=== PATIENT | male | born 1930 | race Caucasian/White ===

== ENCOUNTER 2017-01-28 21:13 | Emergency (ER) | payer MEDICARE ==
[~2017-01-28] VITALS: Ht 170.2 cm; Wt 98.0 kg
[~2017-01-28 21:13] MED LIST: ALLOPURINOL300 MG PO; AMLODIPINE5 MG PO; ASPIRIN EC81 MG PO; ELIQUIS5 MG PO; HYDROCHLOROT12.5 MG PO; LASIX 20 MG TAB20 MG PO; LISINOPRIL20 MG PO; METFORMIN500 MG PO; SIMVASTATIN20 MG PO
[2017-01-28] MEDS ORDERED: PROAIR HFA108 MCG/AC IN (21:44)
[2017-01-28] MEDS ORDERED: FLONASE AL50 MCG/ACT (21:45)
[2017-01-28] MEDS ORDERED: ULTRAM50 M1 PO (22:42)
[2017-01-28 23:07] VITALS: BP 170/79
== END 2017-01-28 23:00 | disposition home or self-care (01) ==
LOC: ED 21:13
DX: S20.212A Contusion of left front wall of thorax, initial encounter (principal); S63.502A Unspecified sprain of left wrist, initial encounter; S63.501A Unspecified sprain of right wrist, initial encounter; W01.0XXA Fall on same level from slipping, tripping and stumbling without subsequent striking against object, initial encounter; Y93.89 Activity, other specified; Y92.29 Other specified public building as the place of occurrence of the external cause

== ENCOUNTER 2017-08-10 18:55 | Emergency (ER) | payer MEDICARE, MEDICAID ==
[~2017-08-10] VITALS: Ht 170.2 cm; Wt 87.2 kg
[~2017-08-10 18:55] MED LIST changes: +FLONASE AL50 MCG/ACT; +PROAIR HFA108 MCG/AC IN; +ULTRAM50 M1 PO
[2017-08-10 19:37] LABS: HEMATOCRIT 45.1 % (39.0-50.0); IMMATURE GRANULOCYTES 0.4 % (0.0-1.0); MEAN CELL VOLUME 96.6 fL CALC (80.0-100.0); MEAN CORPUSCULAR HGB 32.1 pG CALC (26.0-32.0); MEAN CORPUSCULAR HGB CONC 33.3 g/L CALC (32.0-36.0); NEUT# 11.59 thou/uL (1.82-7.42); RED BLOOD COUNT 4.67 mill/uL (4.70-6.10); RED CELL DISTRI WIDTH 14.9 % (11.5-15.5)
[2017-08-10 19:48] LABS: ALKALINE PHOSPHATASE 107 u/l (38-126); AMYLASE < 30 u/l (30-110); BILIRUBIN, TOTAL 2.4 mg/dL (0.0-1.4); BUN 27 mg/dL (8-23); BUN/CREATININE RATIO 31 (12-20 (CALC)); CARBON DIOXIDE 22 mmol/l (22-30); CHLORIDE 104 mmol/l (95-108); CREATININE 0.9 mg/dL (0.7-1.3); GFR > 60 ML/MIN (>=60 (CALC)); GFR FOR AFR.AMER. > 60 ML/MIN (>=60 (CALC)); LIPASE 31 u/l (23-300); SGOT/AST 31 u/l (19-48); SGPT/ALT 32 u/l (11-66); SODIUM 135 mmol/l (137-146); URINE BILIRUBIN - DIPSTICK NEGATIVE (NEGATIVE); URINE BLOOD DIPSTICK LARGE (NEGATIVE); URINE GLUCOSE - DIPSTICK NEGATIVE (NEGATIVE); URINE KETONE NEGATIVE (NEGATIVE); URINE LEUK ESTERASE NEGATIVE (NEGATIVE); URINE NITRITE - DIPSTICK NEGATIVE (Negative); URINE PROTEIN - DIPSTICK 100 mg/dL (NEG-TRACE)
[2017-08-10 19:49] LABS: URINE CLARITY HAZY; URINE COLOR AMBER
[2017-08-10 19:50] LABS: ALBUMIN 3.5 g/dL (3.2-5.0); ANION GAP 14 (6-22 (CALC)); POTASSIUM 4.5 mmol/l (3.5-5.1); TOTAL PROTEIN 6.7 g/dL (6.3-8.2)
[2017-08-10 19:56] LABS: URINE AMORPH SEDIMENT FEW hpf (NONE-FER); URINE SQUAMOUS EPITHELIAL CELL FEW EPI/hpf (0-FEW)
[2017-08-10] MEDS ORDERED: METRONIDAZOL500 MG PO (21:05)
[2017-08-10] MEDS ORDERED: CIPROFLOXACN500 MG PO (21:05)
[2017-08-10 21:21] VITALS: BP 109/54
== END 2017-08-10 21:35 | disposition home or self-care (01) ==
LOC: ED 18:55
PROVIDERS: Family Medicine
DX: K57.32 Diverticulitis of large intestine without perforation or abscess without bleeding (principal); R10.31 Right lower quadrant pain; R10.32 Left lower quadrant pain; R19.7 Diarrhea, unspecified
CPT/HCPCS: Q9967

== ENCOUNTER 2018-11-07 09:47 | Emergency (ER) | payer MEDICARE, MEDICAID ==
[~2018-11-07] VITALS: Ht 170.2 cm; Wt 90.0 kg
[~2018-11-07 09:47] MED LIST changes: +CIPROFLOXACN500 MG PO; +METRONIDAZOL500 MG PO
[2018-11-07] MEDS ORDERED: DIOVAN160 MG PO (11:09)
[2018-11-07] MEDS ORDERED: NORVASC2.5 M1 PO (11:09)
[2018-11-07] MEDS ORDERED: SPIRONOLACTONE25 MG PO (11:11)
[2018-11-07] MEDS ORDERED: ALLERGY RE50 MCG/ACT IN (11:14)
[2018-11-07] MEDS ORDERED: TRIAMCINOLONE A0.12 EX (11:15)
[2018-11-07] MEDS ORDERED: KURIC2 % EX (11:16)
[2018-11-07] MEDS ORDERED: BACTROBAN TOP (12:17)
[2018-11-07] MEDS ORDERED: KEFLEX500 M1 PO (12:17)
[2018-11-07 12:35] VITALS: BP 173/76
== END 2018-11-07 12:35 | disposition home or self-care (01) ==
LOC: ED 09:47
DX: S80.02XA Contusion of left knee, initial encounter (principal); S63.502A Unspecified sprain of left wrist, initial encounter; S80.811A Abrasion, right lower leg, initial encounter; I10 Essential (primary) hypertension; I48.91 Unspecified atrial fibrillation; W01.0XXA Fall on same level from slipping, tripping and stumbling without subsequent striking against object, initial encounter; W22.09XA Striking against other stationary object, initial encounter; Y92.009 Unspecified place in unspecified non-institutional (private) residence as the place of occurrence of the external cause

== ENCOUNTER 2019-07-01 | Emergency (ER) | payer MEDICARE ==
[~2019-07-01] MED LIST changes: +ALLERGY RE50 MCG/ACT IN; +BACTROBAN TOP; +DIOVAN160 MG PO; +KEFLEX500 M1 PO; +KURIC2 % EX; +NORVASC2.5 M1 PO; -SIMVASTATIN20 MG PO; +SPIRONOLACTONE25 MG PO; +TRIAMCINOLONE A0.12 EX
[2019-07-01] MEDS ORDERED: BENICAR20 MG PO (18:22)
[2019-07-01] MEDS ORDERED: LASIX 20 MG TAB20 MG PO (18:23)
[2019-07-01] MEDS ORDERED: ECONAZOLE1 % EX (18:23)
[2019-07-01] MEDS ORDERED: VITAMIN B-12500 MC2 PO (18:24)
[2019-07-01] MEDS ORDERED: KETOCONAZOLE2 % EX (18:24)
[2019-07-01] MEDS ORDERED: VITAMIN D3400 UNIT PO (18:25)
[2019-07-01] MEDS ORDERED: MULTI VIT PO (18:25)
[2019-07-01] MEDS ORDERED: DIOVAN160 MG PO (18:25)
[2019-07-01] MEDS ORDERED: TYLENOL325 M2 PO (18:27)
[2019-07-01] MEDS ORDERED: AMLODIPINE BES2.5 MG PO (18:27)
[2019-07-01] MEDS ORDERED: ZYLOPRIM300 MG PO (18:28)
[2019-07-01] MEDS ORDERED: ELIQUIS5 MG PO (18:28)
[2019-07-01] MEDS ORDERED: SIMVASTATIN20 MG PO (18:29)
[2019-07-01] MEDS ORDERED: KEFLEX500 M1 PO ×2 (20:38)
== END 2019-07-01 20:55 | disposition home or self-care (01) ==
DX: L03.114 Cellulitis of left upper limb (principal); E11.9 Type 2 diabetes mellitus without complications; I10 Essential (primary) hypertension; I48.91 Unspecified atrial fibrillation

== ENCOUNTER 2019-08-08 22:41 | Emergency (ER) | payer MEDICARE, MEDICAID ==
[~2019-08-08] VITALS: Ht 170.2 cm; Wt 86.3 kg
[~2019-08-08 22:41] MED LIST changes: +AMLODIPINE BES2.5 MG PO; +BENICAR20 MG PO; +ECONAZOLE1 % EX; +KETOCONAZOLE2 % EX; +MULTI VIT PO; +SIMVASTATIN20 MG PO; +TYLENOL325 M2 PO; +VITAMIN B-12500 MC2 PO; +VITAMIN D3400 UNIT PO; +ZYLOPRIM300 MG PO
[2019-08-08] MEDS ORDERED: GENTAMICIN SULF5 ML OD (23:42)
[2019-08-08] MEDS ORDERED: ALLERGY EYE DRO1 DRO OD (23:42)
[2019-08-09 00:20] VITALS: BP 185/76
== END 2019-08-09 00:10 | disposition home or self-care (01) ==
LOC: ED 22:41
DX: S05.01XA Injury of conjunctiva and corneal abrasion without foreign body, right eye, initial encounter (principal); H11.31 Conjunctival hemorrhage, right eye; E11.9 Type 2 diabetes mellitus without complications; I10 Essential (primary) hypertension; I48.91 Unspecified atrial fibrillation; X58.XXXA Exposure to other specified factors, initial encounter